=== PATIENT | female | born 1965 | race Caucasian/White ===

== ENCOUNTER → 2017-07-03 | Outpatient (CLI) | payer BC ==
[2017-07-03 12:47] LABS: ESTIMATED AVERAGE GLUCOSE 126 mg/dl; HA1C FLAG Normal (Normal)
[2017-07-03 13:03] LABS: CHOLESTEROL/HDL RATIO 2.8
== END | disposition home or self-care (01) ==
LOC: C.LABBFT 07:35
PROVIDERS: ATTEND Internal Medicine
DX: E78.5 Hyperlipidemia, unspecified (principal); R73.01 Impaired fasting glucose

== ENCOUNTER → 2018-01-28 | Outpatient (CLI) | payer BC ==
[2018-01-28 12:17] LABS: BASO % 0.5 %; BASO ABS # 0.03 K/uL (0-0.2); EOS % 3.9 %; EOS ABS # 0.25 K/uL (0-0.5); HEMATOCRIT 41.4 % (37-47); HEMOGLOBIN 14.3 g/dL (12.0-16.0); IG# 0.01 K/uL (0.00-0.02); LYMPH % 32.7 %; LYMPH ABS # 2.11 K/uL (1.2-3.4); MEAN CORPUSCULAR HEMOGLOBIN 32.8 pg (25-34); MEAN CORPUSCULAR HGB CONC 34.5 g/dl (32-36); MEAN PLATELET VOLUME 10.3 fL (7.4-10.4); MONO ABS # 0.39 K/uL (0.11-0.59); NEUT % 56.7 %; NEUT ABS # 3.67 K/uL (1.4-6.5); PLATELET COUNT 220 K/uL (130-400); RED CELL DISTRIBUTION WIDTH CV 12.6 % (11.5-14.5); RED CELL DISTRIBUTION WIDTH SD 43.4 fL (36.4-46.3); WHITE BLOOD COUNT 6.46 K/uL (4.8-10.8)
[2018-01-28 12:27] LABS: ALBUMIN 3.9 gm/dl (3.4-5.0); ALT/SGPT 31 U/L (12-78); BLOOD UREA NITROGEN 13 mg/dl (7-18); CALCIUM 9.1 mg/dl (8.5-10.1); CARBON DIOXIDE 26 mmol/L (21-32); CREATININE 0.63 mg/dl (0.60-1.20); GLUCOSE 94 mg/dl (70-99); POTASSIUM 3.8 mmol/L (3.5-5.1); SODIUM 140 mmol/L (136-145)
[2018-01-28 12:30] LABS: ALKALINE PHOSPHATASE 57 U/L (45-117); AST/SGOT 19 U/L (15-37)
== END | disposition home or self-care (01) ==
LOC: C.LABBFT 07:27
PROVIDERS: ATTEND Internal Medicine
DX: R73.01 Impaired fasting glucose (principal); E55.9 Vitamin D deficiency, unspecified

== ENCOUNTER → 2018-01-30 | Outpatient (CLI) | payer BC | END | disposition home or self-care (01) | LOC: C.LABBFT 09:06 | PROVIDERS: ATTEND Internal Medicine | DX: R73.01 Impaired fasting glucose (principal) ==

== ENCOUNTER → 2018-02-02 | Outpatient (CLI) | payer BC ==
--- NOTE | 2018-02-02 09:02 | DIAGNOSTIC IMAGING REPORT ---
R ELBOW MIN 3 VIEWS ROUTINE CLINICAL HISTORY: M25.529 Elbow [id number] COMPARISON: None. DISCUSSION: Minimal calcific medial and lateral epicondylitis. No acute bony abnormality. No significant joint effusion. No evidence for fracture or dislocation. There is no evidence for soft tissue swelling. IMPRESSION: Minimal calcific medial and lateral epicondylitis. The above report was generated using voice recognition software. It may contain grammatical, syntax or spelling errors. Electronically signed by: Ludwin Simental M.D. 02/02/2018 9:01 AM Dictated Date/Time: 02/02/2018 8:58 AM
== END | disposition home or self-care (01) ==
LOC: C.RAD1850 08:47
PROVIDERS: ATTEND Internal Medicine
DX: M25.521 Pain in right elbow (principal)

== ENCOUNTER 2019-10-19 05:27 | Inpatient (IN) ==
--- NOTE | 2019-10-11 12:57 | Anesthesiology Consultation ---
Date of Service October 11, 2019 Assessment & Plan Chart Review Chart Review: Acceptable Risk for Surgery and Patient NOT seen in Pre Admission Testing Consults Requested none History Surgery Operation Date: 10/19/19 11:15 Proposed Procedures p Right Carotid Endarterectomy with Bovine Angioplasty - Kevin Marie MD Height/Weight Height: 5 ft 1 in Weight: 72.575 kg Allergies Allergy/AdvReac Type Severity Reaction Status Date / Time Macrolide Antibiotics Allergy Severe TONGUE Verified 10/11/19 10:01 SWELLING Penicillins AdvReac Intermediate YEAST Verified 10/11/19 10:01 INFECTION Medications Home Medications Medication Instructions Recorded Confirmed Last Taken aspirin [Aspir-Low] 81 mg PO DAILY 11/16/18 10/11/19 11/27/18 loratadine [Claritin] 10 mg PO QAM 11/16/18 10/11/19 12/02/18 09:30 melatonin 10 mg PO HS 11/16/18 10/11/19 12/01/18 multivitamin 1 tab PO QAM 11/16/18 10/11/19 12/02/18 09:30 escitalopram oxalate 20 mg tablet 20 mg PO QAM #90 tab 07/29/19 10/11/19 Unknown hydroxyzine HCl 25 mg tablet 25 mg PO Q8H PRN #30 tab 07/29/19 10/11/19 Unknown cholecalciferol (vitamin D3) 2,000 3,000 units PO QAM tab 08/30/19 10/11/19 Unknown unit tablet atorvastatin 40 mg tablet 40 mg PO HS #90 tab 10/07/19 10/11/19 Unknown Medical Marijuana 1 dose INHALATION UD PRN 10/11/19 10/11/19 Unknown candesartan-hydrochlorothiazid 1 tab PO QAM 10/11/19 10/11/19 Unknown metformin 500 mg PO BID 10/11/19 10/11/19 Unknown Past Medical History Medical History (Updated 10/11/19 @ 13:02 by Efrain Adamson MD) Anxiety Carotid stenosis 90% right carotid Depression Endometriosis Hyperlipidemia Hypertension Insomnia Panic attack Prediabetes Smoker Spina bifida 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" Past Family History Family History Other Past medical history not known due to adoption Past Surgical History Surgical History Ganglion cyst REMOVED H/O total hysterectomy History of carpal tunnel release LEFT/RT History of colonoscopy History of tooth extraction Trigger finger RELEASED Social History Smoking Status: Current every day smoker tobacco type: cigarettes Smoking cigarettes per day: 30 CIG DAILY Do You Dip or Chew Tobacco: No Smoking End Date: 30 CIG DAILY Hx Alcohol Use: Yes Alcohol type: beer and wine alcohol intake frequency: a few times a month Hx Substance Use: No substance use type: marijuana Testing Laboratory Results Laboratory Tests 07/21/18 08/30/19 10/08/19 08:11 13:44 11:45 WBC 6.80 Hgb 13.5 Hct 39.2 Plt Count 232 Sodium Potassium Chloride Carbon Dioxide BUN Creatinine Glucose Hemoglobin A1c 6.2 H TSH 1.650 10/08/19 11:45 WBC Hgb Hct Plt Count Sodium 137 Potassium 3.9 Chloride 105 Carbon Dioxide 26 BUN 15 Creatinine 0.64 Glucose 99 Hemoglobin A1c TSH Electrocardiogram Date: 10/08/19 Findings: + NSR @ (82) cannot rule out anterior infarct Chest X-Ray Date: 10/08/19 Findings: + NAD Other Testing CT angio neck with con HISTORY: Stenosis carotid stenosis TECHNIQUE: Multiaxial CT angiography of the neck was performed IV contrast: 100 cc All measurements were calculated based on NASCET criteria. Maximum intensity projection images were also obtained. A dose lowering technique was utilized adhering to the principles of ALARA. COMPARISON STUDY: None. FINDINGS: The aortic arch and proximal great vessels are widely patent. 90% stenosis origin right internal carotid artery. 25% stenosis left carotid bifurcation. Vertebral basilar system is unremarkable. IMPRESSION: 1. 90% stenosis origin right internal carotid artery. 2. 25% stenosis left carotid bifurcation. The above report was generated using voice recognition software. It may contain grammatical, syntax or spelling errors. Electronically signed by: Ludwin Simental M.D. 10/06/2019 4:38 PM Dictated: 10/06/19 1634 Transcribed: 10/06/19 1634
[2019-10-19] MEDS ORDERED: LR 15ML/HR IV SCH (06:00)
[2019-10-19] MEDS ORDERED: SUCCINYLCHOLINE CHLORIDE 20 MG/ML 10 ML VIAL ONE (06:35)
[2019-10-19] MEDS ORDERED: NEOSTIGMINE METHYLSULFATE 5 MG/5 ML SYR ONE (06:35)
[2019-10-19] MEDS ORDERED: PROPOFOL IV EMULSION 10 MG/ML 20 ML VIAL IV ONE (06:35)
[2019-10-19] MEDS ORDERED: LIDOCAINE HCL 2% 2 ML VIAL/AMP(20MG/ML) INFIL ONE (06:35)
[2019-10-19] MEDS ORDERED: DEXAMETHASONE SOD INJ 4 MG/ML VIAL ONE (06:35)
[2019-10-19] MEDS ORDERED: PHENYLEPHRINE HCL 10 MG/ML VIAL ONE (06:35)
[2019-10-19] MEDS ORDERED: NITROGLYCERIN/D5W 100 MCG/ML BTL ONE (06:35)
[2019-10-19] MEDS ORDERED: LARYING-O-JET KIT (LTA) ONE (06:35)
[2019-10-19] MEDS ORDERED: GLYCOPYRROLATE 0.2 MG/ML VIAL ONE (06:35)
[2019-10-19] MEDS ORDERED: CISATRACURIUM BESYLATE IV SOLN 2 MG/ML 10 ML VIAL IV ONE (06:35)
[2019-10-19] MEDS ORDERED: ONDANSETRON INJ 2 MG/ML 2 ML VIAL ONE (06:35)
[2019-10-19] MEDS ORDERED: ESMOLOL HCL INJ 10 MG/ML 10ML VIAL IV ONE (06:35)
--- NOTE | 2019-10-19 06:35 | History & Physical Bridge Note ---
Date of Service October 19, 2019 History & Physical Bridge Note I have examined the patient, reviewed the History & Physical and in the interval since the performance of the History & Physical I have noted the following changes of clinical significance: no changes noted pt marked all questions answered SO at bedside
[2019-10-19] MEDS ORDERED: fentaNYL citrate 100 MCG/2 ML VIAL ONE ×2 (06:36)
[2019-10-19] MEDS ORDERED: MIDAZOLAM HCL 1 MG/ML 2ML VIAL ONE (06:40)
[2019-10-19] MEDS ORDERED: BACITRACIN INJ 50,000 UNIT VIAL ONE (06:52)
[2019-10-19] MEDS ORDERED: HEPARIN (PORCINE) 1000 UNIT/ML 10 ML (CATH LAB USE ONLY) ONE (06:52)
[2019-10-19] MEDS ORDERED: LIDOCAINE/EPINEPHRINE 1% 20 ML VIAL ONE (06:52)
[2019-10-19] MEDS ORDERED: PROTAMINE SULFATE 10 MG/ML 5 ML VIAL ONE (08:39)
[2019-10-19] MEDS ORDERED: CEFAZOLIN 250 MG/ML 1 GM VIAL ONE (08:42)
--- NOTE | 2019-10-19 08:49 | Post Operative Brief Note ---
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 Right Carotid Plaque and internal jugular node Drains Jerald Drain
[2019-10-19] MEDS ORDERED: FLUMAZENIL 0.1 MG/1 ML 10 ML VIAL IV PRN (09:08)
[2019-10-19] MEDS ORDERED: ePHEDrine sulfate 50 MG/ML AMP IV PRN (09:08)
[2019-10-19] MEDS ORDERED: fentaNYL citrate 100 MCG/2 ML VIAL IV PRN (09:08)
[2019-10-19] MEDS ORDERED: LABETALOL HCL IV 5 MG/ML 20ML IV PRN (09:08)
[2019-10-19] MEDS ORDERED: ATROPINE SULFATE 0.1 MG/ML 10ML SYR IV PRN (09:08)
[2019-10-19] MEDS ORDERED: NALOXONE HCL 0.4 MG/1 ML VIAL/CARP IV PRN (09:08)
[2019-10-19] MEDS ORDERED: ONDANSETRON INJ 2 MG/ML 2 ML VIAL IV PRN ×2 (09:08→10:32)
[2019-10-19] MEDS ORDERED: PROMETHAZINE HCL 12.5 MG in SODIUM CHLORIDE 0.9% 50 ML IV PRN (09:08)
--- NOTE | 2019-10-19 09:20 | Operative Report ---
PG Post Operative Report Pre & Post Diagnosis Operation Date: 10/19/19 07:30 Pre-Op Diagnosis: CAROTID STENOSIS Post-Op Diagnosis: CAROTID STENOSIS I identified the patient and participated in the time-out.: Yes Procedure Operation Date: 10/19/19 07:30 Actual Procedures p Right Carotid Endarterectomy with Bovine Angioplasty(Right) - Kevin Marie MD The patient was brought into the operating theater supine position general endotracheal anesthesia the right neck face upper chest was prepped Betadine solution and scrub and properly draped systemic antibiotics given a timeout was had patient was identified this point 1% Xylocaine with epi was used the infiltrate anterior to the sternocleido's muscle medially incision was made about 3-1/2 inches long deepened to subcutaneous tissue we retracted the muscle laterally went onto the neurovascular bundle were able to identify the common carotid which was small the patient had a lymph node and internal jugular node that was in the way that we removed there was about a centimeter or so in size recurrence dissected further distally we identified the hypoglossal nerve after he had divided the facial vein and doubly ligated using vessel loop to retract the hypoglossal nerve superiorly and also were able to identify the superior thyroid which we encircled Sha tie of 2-0 silk use the vessel loop to get around the external carotid disease in the carotid bifurcation was prominent but appear to be mostly localized at the takeoff of the internal carotid area the suspensory ligament was elevated and divided and ligated there was no drop in pressure as we worked around the body the internal carotid was small but free of disease after about a centimeter or so from its takeoff we elevated over a vessel loop systemic antibiotics is given with 7500 of heparin waiting approximately 5 minutes in the meantime we prepped the bovine patch we clamped the internal carotid first with a bulldog clamp and the external then the common arteriotomy in the common carotid was made extending up towards the internal where we takeoff was significantly stenotic as expected radiographically and c linically was 190% seen into the internal carotid which seemed to be tapered nicely as far as any intima and no disease we started dissecting the common carotid and the circular fibers elevating the plaque using 5-0 silk suture stay sutures we did an inversion endarterectomy in his external carotid then continue with an endarterectomy in the internal carotid where the intima was quite adherent we backslash the internal carotid which is excellent backbleeding flush the external and the common infectious dissection was used to free up any debris from the operative field the bovine patch that we reprepped was brought on an unrelated as a patch with 6-0 Prolene starting at the toe and working around towards the heel prior to completing this patch we placed a #3 bakes dilator and the internal carotid and control the backbleeding with a DeBakey forceps then we flushed the common and external suctioned out the endarterectomy site again prior to tacking it down the time it done at this point hemostasis appear satisfactory we took the clamp off the external carotid backbleeding with some areas of escape but there was no true leaks or suture line they need to be reinforced we then took the common carotid clamp off and open up the internal carotid very little bleeding was appreciated we put some Surgicel just at the total of the patch and reversed the heparin with 35 mg of protamine once I palpated the toe and distal to that there was no thrill hemostasis was very satisfactory but I still elected to drain with quarter inch Jerald it was brought between the 2 heads of sternocleido and placed along the operative field attached to the skin edge with 2-0 silk the wound was closed multiple layer 3-0 and 2-0 Vicryl anthony for skin edges dressing was applied procedure was tolerated well by the patient estimated blood loss approximately 30 cc addendumB Andrés crews was present throughout the procedure and helped with exposure traction and wound closure Surgeon Kevin Marie MD Director Of Teaching And Learning Simba CREWS Estimated Blood Loss 30 Findings Consistent with Post-Op Diagnosis Specimens carotid plaque and lymph node int jugular chain Description of Procedure merda I attest to the content of the Intraoperative Record and any orders documented therein. Any exceptions are noted below.
--- NOTE | 2019-10-19 09:55 | Anesthesiology Progress Note ---
Date of Service October 19, 2019 Anesthesia Post Procedure Vital Signs Vital Signs: Temp Pulse Pulse Resp BP BP Pulse Ox 10/19/19 09:40 36.6 C 76 12 102/63 110/53 L 96 10/19/19 09:30 71 16 97/70 L 121/61 97 10/19/19 09:20 71 15 106/70 127/62 99 10/19/19 09:10 73 16 104/77 117/55 L 100 10/19/19 09:03 36.3 C L 76 14 137/64 133/71 98 10/19/19 05:46 36.6 C 74 18 112/67 94 Transfer of Care Handoff Completed per policy Notes Mental Status: alert / awake / arousable Patient Amnestic to Procedure: Yes Nausea / Vomiting: adequately controlled Pain: adequately controlled Airway Patency, RR, SpO2: stable & adequate BP & HR: stable & adequate Hydration State: stable & adequate Anesthetic Complications: no major complications apparent
[2019-10-19] MEDS ORDERED: GLUCOSE 40% GEL 15 GM TUBE PO PRN (10:32)
[2019-10-19] MEDS ORDERED: GLUCAGON FOR INJ 1 MG VIAL SQ PRN (10:32)
[2019-10-19] MEDS ORDERED: NITROGLYCERIN/D5W 100MCG/ML 250 ML IV PRN (10:32)
[2019-10-19] MEDS ORDERED: MoRPHine SULFATE 4 MG/ML 1 ML CARP\\VIAL IV PRN (10:32)
[2019-10-19] MEDS ORDERED: CARBOHYDRATES FOR HYPOGLYCEMIA PO PRN (10:32)
[2019-10-19] MEDS ORDERED: DEXTROSE 50% 50 ML SYRINGE IV PRN (10:32)
[2019-10-19] MEDS ORDERED: GLUCOSE 10 TABS/TUBE PO PRN (10:32)
[2019-10-19] MEDS: LORATADINE 10 MG TAB PO SCH (11:16)
[2019-10-19] MEDS: ESCITALOPRAM OXALATE 20 MG TAB PO SCH (11:16)
[2019-10-19] MEDS: LACTATED RINGER'S 1,000 ML IV SCH ×2 (11:16→23:42)
[2019-10-19] MEDS ORDERED: hydroCHLOROthiazide 25 MG TAB PO SCH ×2 (11:30)
[2019-10-19] MEDS: INSULIN ASPART 100 UNITS/ML 3 ML PEN SC SCH ×3 (11:44→20:27)
--- NOTE | 2019-10-19 14:56 | Critical Care Consultation ---
Date of Consultation October 19, 2019 Assessment & Plan (1) Admitted to intensive care unit: Reason Critically Ill: 54-year-old female here with a PMHx significant for anxiety, depression, bipolar, hypertension, hyperlipidemia, tobacco abuse, and right carotid stenosis status post carotid endarterectomy who is admitted to the ICU for postoperative care. Neuro - [facility] ICU: NEGATIVE Analgesia: Hydrocodone/acetaminophen 1-2 tablets p.o. 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 - Surgical site management per primary team Hypertension -MORTGAGE CLERK is normally on candesartanhydrochlorothiazide combo Continue hydrochlorothiazide 25 mg daily Candesartan 32 mg daily held, may resume combo on discharge Normotensive postop Continue aspirin 81 mg daily Hyperlipidemia Continue atorvastatin 40 mg p.o. nightly Respiratory - No acute concerns, breathing well on room air GI - Heart healthy carb consistent diet IVFM LR 50 cc/h until p.o. intake increases RENAL/LYTES - Preoperative creatinine <1 BMP Cisneros morning - No concerns at this time. ENDO - Postoperative glucose ~1001 22 Goes checks every 4 hours if n.p.o., insulin SSI HEME - No preoperative anemia Minimal blood loss during surgery No active bleeding at time of exam CBC tomorrow morning ID - No concerns for infection at this point. INTEGUMENTARY - Surgical site management as above, no other acute concerns DVT PROPHYLAXIS - SCDs in place Pharmacal prophylaxis contraindicated, postoperative swelling Thank you for allowing us to be part of this patient's care. Please refer to Dr. Montgomery's documentation for any further recommendations. (2) Bipolar affective, depress, unspec: (3) Anxiety: (4) Anxiety: (5) S/P carotid endarterectomy: Supervising Physician Co-Signing Physician Notes Dr. Mcfarlane was resident physician during care of patient. I separately evaluated patient for hennessy portions of the history and the exam. I was present during the critical portion of medical decision making, and I discussed the case with the resident. I generally agree with the findings and plan. Postoperative carotid endarterectomy management close observation blood pressure History of Present Illness Reason for Consultation: Postoperative care Requesting Physician: Kevin Daley MD Attending Physician: Kevin Marie MD History of Present Illness Kym is a 54-year-old female with a past medical history of hypertension, hyperlipidemia, depression, tobacco abuse, bipolar, and anxiety who presented to the hospital for scheduled carotid endarterectomy and who is been admitted to the ICU for postoperative monitoring and care. Suellen reports that she was in her normal state of health until a few weeks ago when her primary care physician Dr. Knox referred her for routine Dopplers age 53 and noted stenosis of her right carotid artery. She was referred to surgery who recommend she proceed with a carotid endarterectomy for a 90% occlusion of her right ICA. Her left carotid had 25% occlusion at the bifurcation for which surgical intervention was not indicated. She underwent right carotid endarterectomy with bovine angioplasty 10/19/2019 without complications and minimal blood loss. She reports that following surgery she feels well, and other than localized pain in her neck is not having any symptoms or concerns. She reports she had no symptoms prior to her surgery, specifically denies lightheadedness, dizziness, syncope, presyncope, vision change, focal sensation deficit, focal weakness, chest pain, chest pressure, or shortness of breath. She is not having any fever, chills, sweats. Denies nausea, vomiting, diarrhea, constipation. Denies black/tarry bowel movements, denies bright red blood per rectum, denies hematemesis. She reports that she has had intermittent numbness/tingling of her left wrist and she has had carpal tunnel surgery in the past but at time of visit is not having any numbness, tingling, paresthesia, or weakness. Denies rash. She endorses 8/10 pain at her surgical site in her right neck worsened by movement, but improved by rest and staying still. Reports the pain is tolerable to her. Medical history: Reviewed. Past surgical history: Endorses history of carpal tunnel surgery and hysterectomy. Denies other surgery. Family history: She reports she is adopted, does not know her parents medical history. She knows she does have a brother who "does not take care of himself "but who is had DVTs in the past. Is not aware of any other family medical history. Social history: Lives at home, able to ambulate independently. Endorses active tobacco abuse, has smoked about 1-1/2 packs/day for 42 years. Endorses weekly alcohol use, drinks once to twice per week about 8 ounces of meat in a setting. She has a medical marijuana card for anxiety, panic, and depression. Denies recreational drug use. Allergies: Endorses tongue swelling with macrolide antibiotics. Denies other medication allergies. Allergies Allergy/AdvReac Type Severity Reaction Status Date / Time Macrolide Antibiotics Allergy Severe TONGUE Verified 10/19/19 05:58 SWELLING Penicillins AdvReac Intermediate YEAST Verified 10/19/19 05:58 INFECTION Home Medications Home Medications Medication Instructions Recorded Confirmed Type aspirin [Aspir-Low] 81 mg PO DAILY 11/16/18 10/19/19 History loratadine [Claritin] 10 mg PO QAM 11/16/18 10/19/19 History melatonin 10 mg PO HS 11/16/18 10/19/19 History multivitamin 1 tab PO QAM 11/16/18 10/19/19 History escitalopram oxalate 20 mg tablet 20 mg PO QAM #90 tab 07/29/19 10/19/19 Rx hydroxyzine HCl 25 mg tablet 25 mg PO Q8H PRN #30 tab 07/29/19 10/19/19 Rx cholecalciferol (vitamin D3) 2,000 3,000 units PO QAM tab 08/30/19 10/19/19 History unit tablet atorvastatin 40 mg tablet 40 mg PO HS #90 tab 10/07/19 10/19/19 Rx Medical Marijuana 1 dose INHALATION UD PRN 10/11/19 10/19/19 History candesartan-hydrochlorothiazid 1 tab PO QAM 10/11/19 10/19/19 History metformin 500 mg PO BID 10/11/19 10/19/19 History Patient History Family History Other Past medical history not known due to adoption Social History (Updated 10/08/19 @ 10:25 by Obdulia Billingsley RN) Preferred Language: Greenlandic Communication Ability: Effective Softwood Faller Required: No Beliefs That Will Affect Care: None marital status: Current Living Situation: Spouse current occupational status: employed 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 Feels Safe at Home: Yes Safety Concerns: Feels Safe At This Time Smoking Status: Current every day smoker Tobacco Type: cigarettes ; Age Started Using Tobacco: 13 ; packs per day: 1.5 ; Cigarettes Per Day: 30 CIG DAILY ; Do You Dip or Chew Tobacco: No ; Smoking End Date: 30 CIG DAILY ; Second Hand Exposure: Yes ( A CHILD) ; Tobacco Cessation Education Requested by Patient: No Hx Alcohol Use: Yes Alcohol type: beer and wine Hx Substance Use: No Review of Systems Review of Systems: All systems reviewed & are unremarkable except as noted in HPI & below Physical Exam Physical Exam: General: A&Ox3. NAD. Cooperative. HEENT: Normocephalic. Neuro testing as below. Surgical dressing over right carotid present, C/D/I. Oropharynx moist, minimal left uvular deflection without airway obstruction. Pulm: CTAB A&P. -wheezes, -rales, -rhonchi. Symmetrical chest rise. No increase work of breathing. No respiratory distress. Cardiac: RRR, -mrg. Radial pulses intact and symmetrical. Abdominal: Nontender, nondistended, soft. BS present. Extremity: Sensation intact to soft touch in fingertips and toes bilaterally, symmetrical. Cloth Folder Machine strength intact bilaterally, ankle plantarflexion/dorsiflexion 5/5 strength bilaterally. PT pulses intact and symmetrical bilaterally. Capillary refill and thumbs approximately 2 seconds. Neurologic: Visual prather are full to confrontation. Pupils are equal and react to light and accomidation. Visual acuity grossly intact. At primary gaze, there is no eye deviation. EoM intact without nystagmus. No visual field cuts. Facial sensation is intact to soft touch in all 3 divisions bilaterally. No facial asymmetry, full strength to eyebrow raise, smile, eye close, and cheek puff.Hearing is grossly intact. Palate elevates symmetrically. Phonation is normal without dysarthria. Head turning not tested 2/2 surgical site tenderness on movement. Tongue protrudes midline. Results & Data Vital Signs (Past 12 Hours) Vital Signs Temp Pulse Pulse Pulse Resp BP BP 10/19/19 12:31 86 13 10/19/19 12:30 87 17 109/71 10/19/19 12:15 82 18 10/19/19 12:01 80 19 10/19/19 12:00 81 14 109/71 10/19/19 11:45 78 8 L 10/19/19 11:31 86 14 107/83 10/19/19 11:30 93 H 19 10/19/19 11:15 82 11 L 10/19/19 11:01 83 16 10/19/19 11:00 75 17 97/69 L 10/19/19 10:45 82 17 10/19/19 10:31 70 16 10/19/19 10:30 71 13 92/60 L 10/19/19 10:15 73 14 10/19/19 10:02 72 16 10/19/19 10:00 73 16 92/59 L 10/19/19 09:40 36.6 C 76 12 102/63 10/19/19 09:30 71 16 97/70 L 10/19/19 09:20 71 15 106/70 10/19/19 09:10 73 16 104/77 10/19/19 09:03 36.3 C L 76 14 137/64 10/19/19 05:46 36.6 C 74 18 BP Pulse Ox 10/19/19 12:31 97 10/19/19 12:30 97 10/19/19 12:15 96 10/19/19 12:01 96 10/19/19 12:00 96 10/19/19 11:45 95 10/19/19 11:31 95 10/19/19 11:30 95 10/19/19 11:15 95 10/19/19 11:01 96 10/19/19 11:00 96 10/19/19 10:45 96 10/19/19 10:31 96 10/19/19 10:30 96 10/19/19 10:15 96 10/19/19 10:02 97 10/19/19 10:00 96 10/19/19 09:40 110/53 L 96 10/19/19 09:30 121/61 97 10/19/19 09:20 127/62 99 10/19/19 09:10 117/55 L 100 10/19/19 09:03 133/71 98 10/19/19 05:46 112/67 94 Resident Activity Tracking Resident Involvement: Resident Care Provided Care Provided: Adult Hospital Medicine
--- NOTE | 2019-10-19 15:20 | Billing Data ---
Coding Level of Care Code 50663 Inpt Consult Level 4
[2019-10-19] MEDS: HYDROCODONE/ACETAMOPHEN 5/325MG TAB PO PRN ×2 (16:40→20:29)
[2019-10-19] MEDS ORDERED: ATORVASTATIN 40 MG TAB PO SCH (21:00)
[2019-10-20 04:41] LABS: Basophils # (auto) 0.01 K/uL (0-0.2); Basophils % (auto) 0.1 %; Eosinophils # (auto) 0.02 K/uL (0-0.5); Eosinophils % (auto) 0.1 %; Hematocrit (blood only) 36.9 % (37-47); Hemoglobin 12.4 g/dL (12.0-16.0); Immature Granulocytes # (auto) 0.04 K/uL (0.00-0.02); Immature Granulocytes % (auto) 0.3 %; Lymphocytes % (auto) 14.9 %; Mean Corpuscular Hgb Conc 33.6 g/dL (32-36); Mean Corpuscular Volume 98.1 fL (80-100); Mean Platelet Volume 9.5 fL (7.4-10.4); Monocytes # (auto) 0.62 K/uL (0.11-0.59); Monocytes % (auto) 4.6 %; Neutrophils # (auto) 10.71 K/uL (1.4-6.5); Platelet Count 199 K/uL (130-400); RDW Coefficient of Variation 12.4 % (11.5-14.5); RDW Standard Deviation 44.4 fL (36.4-46.3); Red Blood Count 3.76 M/uL (4.2-5.4)
[2019-10-20 05:08] LABS: BUN Creatinine Ratio 17.3 (10-20); Calcium 8.4 mg/dl (8.5-10.1); Creatinine Clr Calc Pharmacy 89.2 ml/min; Est GFR (African American) 115.6; Est GFR (Non-African American) 99.8; Phosphorus 3.8 mg/dl (2.5-4.9)
[2019-10-20] MEDS: HYDROCODONE/ACETAMOPHEN 5/325MG TAB PO PRN (06:51)
[2019-10-20] MEDS: INSULIN ASPART 100 UNITS/ML 3 ML PEN SC SCH (07:44)
[2019-10-20] MEDS: LORATADINE 10 MG TAB PO SCH (07:46)
[2019-10-20] MEDS: ESCITALOPRAM OXALATE 20 MG TAB PO SCH (07:46)
--- NOTE | 2019-10-20 08:02 | Anesthesiology Progress Note ---
Date of Service October 20, 2019 Anesthesia Post Procedure Vital Signs Vital Signs: Temp Pulse Pulse Resp BP BP BP 10/20/19 06:00 70 18 141/81 H 10/20/19 05:00 71 8 L 130/78 10/20/19 04:00 74 18 119/84 10/20/19 03:00 72 12 116/74 10/20/19 02:00 76 11 L 124/75 10/20/19 01:00 71 13 109/59 L 10/20/19 00:00 78 15 107/71 10/19/19 23:23 73 10/19/19 23:00 75 15 101/58 L 10/19/19 22:00 80 18 112/75 10/19/19 21:00 80 19 111/74 10/19/19 20:00 83 18 123/78 10/19/19 19:15 82 20 10/19/19 19:00 92 H 25 H 10/19/19 18:45 83 18 10/19/19 18:30 84 20 10/19/19 18:15 83 16 10/19/19 18:01 86 18 112/76 10/19/19 18:00 85 18 10/19/19 17:45 95 H 16 10/19/19 17:30 88 18 121/77 10/19/19 17:15 86 22 10/19/19 17:01 89 21 124/67 10/19/19 17:00 88 18 10/19/19 16:45 88 18 10/19/19 16:31 82 10 L 10/19/19 16:30 80 16 105/75 10/19/19 16:15 85 15 10/19/19 16:01 82 17 10/19/19 16:00 83 18 114/74 10/19/19 15:45 82 16 10/19/19 15:31 87 22 10/19/19 15:30 83 18 114/74 10/19/19 15:15 79 20 10/19/19 15:00 87 12 10/19/19 14:45 80 16 10/19/19 14:31 78 17 10/19/19 14:30 78 15 110/78 10/19/19 14:15 90 20 10/19/19 14:01 83 16 10/19/19 14:00 85 18 103/68 10/19/19 13:45 82 17 10/19/19 13:31 85 17 10/19/19 13:30 78 15 101/71 10/19/19 13:15 81 11 L 10/19/19 13:11 79 17 97/70 L 10/19/19 13:01 83 20 10/19/19 13:00 87 17 97/70 L 10/19/19 12:45 89 20 10/19/19 12:31 86 13 10/19/19 12:30 87 17 109/71 10/19/19 12:15 82 18 10/19/19 12:01 80 19 10/19/19 12:00 81 14 109/71 10/19/19 11:45 78 8 L 10/19/19 11:31 86 14 107/83 10/19/19 11:30 93 H 19 10/19/19 11:15 82 11 L 10/19/19 11:01 83 16 10/19/19 11:00 75 17 97/69 L 10/19/19 10:45 82 17 10/19/19 10:31 70 16 10/19/19 10:30 71 13 92/60 L 10/19/19 10:15 73 14 10/19/19 10:02 72 16 10/19/19 10:00 73 16 92/59 L 10/19/19 09:40 36.6 C 76 12 102/63 110/53 L 10/19/19 09:30 71 16 97/70 L 121/61 10/19/19 09:20 71 15 106/70 127/62 10/19/19 09:10 73 16 104/77 117/55 L 10/19/19 09:03 36.3 C L 76 14 137/64 133/71 Pulse Ox 10/20/19 06:00 100 10/20/19 05:00 99 10/20/19 04:00 99 10/20/19 03:00 94 10/20/19 02:00 97 10/20/19 01:00 98 10/20/19 00:00 97 10/19/19 23:23 10/19/19 23:00 97 10/19/19 22:00 97 10/19/19 21:00 96 10/19/19 20:00 98 10/19/19 19:15 98 10/19/19 19:00 96 10/19/19 18:45 96 10/19/19 18:30 97 10/19/19 18:15 97 10/19/19 18:01 97 10/19/19 18:00 97 10/19/19 17:45 97 10/19/19 17:30 97 10/19/19 17:15 96 10/19/19 17:01 96 10/19/19 17:00 97 10/19/19 16:45 97 10/19/19 16:31 97 10/19/19 16:30 98 10/19/19 16:15 97 10/19/19 16:01 97 10/19/19 16:00 97 10/19/19 15:45 97 10/19/19 15:31 97 10/19/19 15:30 97 10/19/19 15:15 97 10/19/19 15:00 90 10/19/19 14:45 97 10/19/19 14:31 97 10/19/19 14:30 97 10/19/19 14:15 97 10/19/19 14:01 97 10/19/19 14:00 97 10/19/19 13:45 97 10/19/19 13:31 98 10/19/19 13:30 98 10/19/19 13:15 94 10/19/19 13:11 98 10/19/19 13:01 98 10/19/19 13:00 97 10/19/19 12:45 98 10/19/19 12:31 97 10/19/19 12:30 97 10/19/19 12:15 96 10/19/19 12:01 96 10/19/19 12:00 96 10/19/19 11:45 95 10/19/19 11:31 95 10/19/19 11:30 95 10/19/19 11:15 95 10/19/19 11:01 96 10/19/19 11:00 96 10/19/19 10:45 96 10/19/19 10:31 96 10/19/19 10:30 96 10/19/19 10:15 96 10/19/19 10:02 97 10/19/19 10:00 96 10/19/19 09:40 96 10/19/19 09:30 97 10/19/19 09:20 99 10/19/19 09:10 100 10/19/19 09:03 98 Pain Intensity Right Neck: Pain Intensity: 9 Notes Mental Status: alert / awake / arousable and participated in evaluation Patient Amnestic to Procedure: Yes Nausea / Vomiting: adequately controlled Pain: adequately controlled Airway Patency, RR, SpO2: stable & adequate BP & HR: stable & adequate Hydration State: stable & adequate Anesthetic Complications: no major complications apparent and Pt Satisfied with anesthetic care
[2019-10-20] MEDS ORDERED: ASPIRIN 81 MG ECTAB PO SCH (09:00)
--- NOTE | 2019-10-20 09:14 | Surgery Progress Note ---
Date of Service October 20, 2019 Assessment & Plan (1) S/P carotid endarterectomy: BP stable ok for discharge Subjective some pain, some tongue "numbness" no other neuro complaints Physical Exam Neck: incision clean & dry, no further drainage since keeley removed earlier, neuro intact Results & Data Vital Signs (Past 12 Hours) Vital Signs Pulse Resp BP Pulse Ox 10/20/19 08:01 81 19 93 10/20/19 08:00 70 15 122/75 92 10/20/19 07:30 75 16 95 10/20/19 07:01 68 16 98 10/20/19 07:00 70 17 134/81 98 10/20/19 06:00 70 18 141/81 H 100 10/20/19 05:00 71 8 L 130/78 99 10/20/19 04:00 74 18 119/84 99 10/20/19 03:00 72 12 116/74 94 10/20/19 02:00 76 11 L 124/75 97 10/20/19 01:00 71 13 109/59 L 98 10/20/19 00:00 78 15 107/71 97 10/19/19 23:23 73 10/19/19 23:00 75 15 101/58 L 97 10/19/19 22:00 80 18 112/75 97 PG Care Time/CCT Total # of Minutes Spent Total Time Spent with Patient: Total time spent is greater than 50% in coordination of care (as documented) at patient's floor/unit and/or counseling patient:
--- NOTE | 2019-10-20 11:34 | Discharge Summary ---
Date of Service October 20, 2019 Principal Diagnosis Right carotid stenosis Discharge Exam Neck no tracheal deviation incision clean, dry Neurologic PERRL, EOMI, accommodation nl, no face palsy, no dysarthria moves all extremities Discharge Data Allergies Allergy/AdvReac Type Severity Reaction Status Date / Time Macrolide Antibiotics Allergy Severe TONGUE Verified 10/19/19 05:58 SWELLING Penicillins AdvReac Intermediate YEAST Verified 10/19/19 05:58 INFECTION Consultations 10/19/19 10:32 Consult Process Engineering Intern Routine Procedures Performed Operation Date: 10/19/19 07:30 Actual Procedures p Right Carotid Endarterectomy with Bovine Angioplasty(Right) - Kevin Marie MD Hospital Course (1) S/P carotid endarterectomy: 54 y/o female with 90% stenosis of the right internal carotid artery was taken to the operating room for endarterectomy. She was observed overnight in [facility] ICU where BP and neurologic status remained stable. [place] drain was removed in the morning. She was stable for discharge. Total Time Total Time Spent Total Time Spent (In Minutes): 10 Discharge Plan Discharge Items Patient Disposition: Home - Self-Care Reason For Visit: CAROTID STENOSIS Discharge Diagnosis: carotid endarterectomy Activity: As commented below Bathing Comment: ok to shower Driving/Machine Use: no driving for 1 week Non-emergency contact: Surgeon Call non-emergency contact if: you have any medication questions, your pain is not controlled, you have a fever, your temperature is above 101.5, your wound has increased redness and your wound has increased drainage Follow-up/Referrals: Lorraine Swift PA-C [Primary Care Provider] - Kevin Marie MD [Surgeon] - (In 1 week, call the office if you do not already have an appt) Diet: Regular Addtl Attending Provider Instructions: Pending Studies at Discharge: No Stand-Alone Forms: My [employer], Smoking Cessation Medications and DC Order Prescriptions: New hydrocodone-acetaminophen [[place]] 5-325 mg tablet 1 - 2 tab PO Q4H PRN (Reason: pain, initial therapy, max 8 daily) Qty: 10 RF: 0 Continued atorvastatin 40 mg tablet 40 mg PO HS Qty: 90 RF: 1 escitalopram oxalate 20 mg tablet 20 mg PO QAM Qty: 90 RF: 3 hydroxyzine HCl 25 mg tablet 25 mg PO Q8H PRN (Reason: anxiety ) Qty: 30 RF: 3 multivitamin Tablet 1 tab PO QAM RF: 0 aspirin [Aspir-Low] 81 mg Tablet,Delayed Release (Dr/Ec) 81 mg PO DAILY RF: 0 loratadine [Claritin] 10 mg Tablet 10 mg PO QAM RF: 0 melatonin 10 mg Tablet,Disintegrating 10 mg PO HS RF: 0 cholecalciferol (vitamin D3) [Vitamin D3] 2,000 unit tablet 3,000 units PO QAM RF: 0 metformin 500 mg tablet extended release 24 hr 500 mg PO BID RF: 0 candesartan-hydrochlorothiazid 32-25 mg tablet 1 tab PO QAM RF: 0 Medical Marijuana 1 dose inhalation UD PRN (Reason: Anxiety) RF: 0 Discharge Orders: Discharge Order (Routine); Ordered 10/20/19 Ordered By: Jeff Bowen Admission Data Admit Date/Time: 10/19/19 09:20 Attending Provider: Kevin Marie Admit Provider: Kevin Marie Primary Care Provider: Lorraine Swift Other Providers: Parrish Louis Other Interventions: Discharge Summary Assessment (RN) Last Done: 10/20/19 09:16 DC Date/Time DO NOT enter until pt leaves facility: 10/20/19 09:37
== END 2019-10-20 09:37 | disposition home or self-care (01) | DRG 39 ==
LOC: ASU 05:27 → 1E 09:20